=== PATIENT | female | born 1980 | race Caucasian/White ===

== ENCOUNTER 2020-08-09 03:51 | Emergency (ER) | payer SELFPAY ==
[~2020-08-09] VITALS: Ht 167.6 cm; Wt 77.2 kg
[2020-08-09 03:55] VITALS: BP 123/85
[2020-08-09] MEDS ORDERED: HYDROCO/APAP1 TA9 PO (04:16)
[2020-08-09] MEDS ORDERED: CLEOCIN300 MG PO (04:16)
== END 2020-08-09 04:30 | disposition home or self-care (01) | DRG 159 ==
LOC: ED 03:51
DX: S02.5XXA Fracture of tooth (traumatic), initial encounter for closed fracture (principal); F17.210 Nicotine dependence, cigarettes, uncomplicated; X58.XXXA Exposure to other specified factors, initial encounter

== ENCOUNTER 2020-12-23 08:52 | Emergency (ER) | payer SELFPAY ==
[~2020-12-23] VITALS: Ht 167.6 cm; Wt 75.0 kg
[~2020-12-23 08:52] MED LIST: CLEOCIN300 MG PO; HYDROCO/APAP1 TA9 PO
[2020-12-23 09:20] VITALS: BP 148/76
== END 2020-12-23 09:40 | disposition left against medical advice (07) | DRG 951 ==
LOC: ED 08:52 → LWOBS 09:40
DX: Z53.21 Procedure and treatment not carried out due to patient leaving prior to being seen by health care provider (principal)

== ENCOUNTER 2021-03-11 | Emergency (ER) | payer OTHER ==
[2021-03-11 14:10] LABS: HEMATOCRIT 46.8 % (37.0-47.0); HEMOGLOBIN 15.3 g/dl (12.0-16.0); IMMATURE GRANULOCYTES 0.5 % (0.0-5.0); MEAN CORPUSCULAR HGB 29.4 pG CALC (26.0-32.0); MEAN CORPUSCULAR HGB CONC 32.7 g/dL CAL (32.0-36.0); NEUT# 8.42 thou/uL (2.00-7.15); RED BLOOD COUNT 5.2 mill/uL (4.20-5.60); RED CELL DISTRI WIDTH 12.3 % (11.5-15.5)
[2021-03-11 14:16] LABS: URINE BILIRUBIN - DIPSTICK NEGATIVE (NEGATIVE); URINE BLOOD DIPSTICK NEGATIVE (NEGATIVE); URINE COLOR YELLOW; URINE GLUCOSE - DIPSTICK NEGATIVE (NEGATIVE); URINE KETONE NEGATIVE (NEGATIVE); URINE LEUK ESTERASE NEGATIVE (NEGATIVE); URINE NITRITE - DIPSTICK NEGATIVE (Negative); URINE PROTEIN - DIPSTICK NEGATIVE (NEG-TRACE); URINE SPECIFIC GRAVITY <=1.005; URINE UROBILINOGEN - DIPSTICK 0.2 E.U./dL (0.2)
[2021-03-11 14:29] LABS: BILIRUBIN, TOTAL 0.7 mg/dL (0.0-1.4); BUN 3 mg/dL (7-17); BUN/CREATININE RATIO 5 (12-20 (CALC)); CARBON DIOXIDE 24 mmol/l (22-30); CHLORIDE 100 mmol/l (95-108); CREATININE 0.7 mg/dL (0.5-1.0); GFR > 60 ML/MIN (>=60 (CALC)); GFR FOR AFR.AMER. > 60 ML/MIN (>=60 (CALC)); LIPASE 46 u/l (23-300); POTASSIUM 3.4 mmol/l (3.5-5.1); SGOT/AST 22 u/l (14-36); TOTAL PROTEIN 8.1 g/dL (6.3-8.2)
[2021-03-11 14:33] LABS: ALBUMIN 4.7 g/dL (3.2-5.0); ALKALINE PHOSPHATASE 70 u/l (38-126); ANION GAP 14 (6-22 (CALC)); SODIUM 135 mmol/l (137-146)
[2021-03-11] MEDS ORDERED: HYOSCYAMINE0.125 M3 PO (17:18)
[2021-03-11] MEDS ORDERED: ZOFRAN4 M1 PO (17:18)
== END 2021-03-11 17:37 | disposition home or self-care (01) | DRG 392 ==
PROVIDERS: Family Medicine
DX: R10.31 Right lower quadrant pain (principal); N83.201 Unspecified ovarian cyst, right side
CPT/HCPCS: Q9967